=== PATIENT | female | born 1980 | race Caucasian/White ===

== ENCOUNTER 2018-07-20 09:17 | Day surgery (SDC) | payer OTHER ==
[2018-07-17 14:56] LABS: Urine Appearance CLEAR; Urine Bilirubin NEGATIVE (NEG); Urine Blood NEGATIVE (NEG); Urine Color YELLOW; Urine Glucose NEGATIVE (NEG); Urine Protein NEGATIVE (NEG); Urine Urobilinogen 0.2 mg/dL (0.2-1.0)
[2018-07-17 15:07] LABS: Absolute Monocytes 0.2 K/uL (0.1-1.3); Basophils % 0.6 % (0-1.3); Eosinophils % 1.8 % (0-4.4); Hematocrit 37.2 % (36.0-45.0); Lymphocytes % 23.4 % (15.3-44.8); MCH 27.2 pg (27.0-35.0); Monocytes % 5.7 % (3.3-12.3); RBC Red Blood Cell Count 4.37 M/uL (3.86-4.86)
[2018-07-17 15:11] LABS: Urine Microscopic Reflex NO UMIC
[~2018-07-20 09:17] MED LIST: Ringers Lactate 1,000 ML IV SCH
[2018-07-20 09:36] LABS: Specific Gravity 1.015 (1.005-1.030)
[2018-07-20] MEDS ORDERED: Ringers Lactate 1,000 ML IV ONE (09:44)
[2018-07-20] MEDS: HYDROCODONE/APAP 5/325 MG TAB ONE ×2 (10:19→17:05)
[2018-07-20] MEDS ORDERED: LIDOCAINE 1% MPF 5 ML VIAL ONE (12:46)
[2018-07-20] MEDS ORDERED: PROPOFOL 200 MG/20 ML VIAL IV ONE (12:46)
[2018-07-20] MEDS ORDERED: MIDAZOLAM HCL 2 MG/2 ML INJ ONE (12:46)
[2018-07-20] MEDS ORDERED: ROCURONIUM 50 MG/5 ML VIAL IV ONE (12:47)
[2018-07-20] MEDS ORDERED: FENTANYL CITR 100 MCG/2 ML ONE (12:47)
[2018-07-20] MEDS ORDERED: ONDANSETRON HCL 40 MG/20 ML VIAL ONE (12:47)
[2018-07-20] MEDS ORDERED: FENTANYL CITR 250 MCG/5 ML ONE (12:48)
[2018-07-20] MEDS ORDERED: NA CHLORIDE 0.9% 1,000 ML ONE (13:07)
[2018-07-20] MEDS ORDERED: METHYLENE BLUE 0.5% 10 ML AMP ONE (13:26)
[2018-07-20] MEDS ORDERED: KETOROLAC 30 MG/ML INJ ONE (15:03)
[2018-07-20] MEDS: MORPHINE 4 MG/ML SYR ONE ×2 (15:25→15:30)
[2018-07-20] MEDS ORDERED: PROMETHAZINE 25 MG/ML VIAL ONE (15:34)
[2018-07-20] MEDS: MEPERIDINE HCL 50 MG/ML AMP ONE ×4 (15:35→15:45)
[2018-07-20] MEDS ORDERED: METOCLOPRAMIDE 10 MG/2mL INJ ONE (15:38)
[2018-07-20] MEDS ORDERED: HYDROCODONE/APAP 5/325 MG TAB ONE ×2 (16:36→17:09)
[2018-07-20 16:58] VITALS: TEMP 98; O2SAT 100
[2018-07-20 17:36] VITALS: BP 110/60
--- NOTE | 2018-07-21 01:59 | OP ---
Date of Procedure: 07/20/2018 Surgeon: Fanta Christianson MD Software Test Analyst: Rosa Hernandez. Preoperative Diagnoses: Bicornuate uterus, heavy periods, pelvic pain and female infertility. Postoperative Diagnoses: Bicornuate uterus, heavy periods, pelvic pain and female infertility and en dometriosis. Procedures Performed: Hysteroscopy, dilatation and curettage with Symphion, resectoscopic endometria l sampling, laparoscopy, chromotubation, and endometriosis excision. Anesthesia: General endotracheal. Specimens: Left periureteric and posterior vaginal wall endometriosis. Complications: None. Drains: None. Condition: The patient's condition is stable. Findings: Right tube was patent with a normal easy flush of the methylene blue. The left tube had n o hydrosalpinx, however, did not flush with the methylene blue despite multiple attempts. Endometrio sis was present in the left periureteric area where the ureter had to be dissected for about 2 cm whe re the implant appeared to be adhered to the periureteric sheath. The posterior vaginal wall was sin gle isolated and possible implant that was excised. No other implants were seen. Upper abdominal ca vity with some adhesions. No endometriosis seen. Description Of Procedure: After informed consent was verified, the patient was taken back to the OR, placed in a supine fashion on operating table. After general anesthesia was given, she was placed i n a dorsal lithotomy position using Chris stirrups. Pelvic exam was performed. Uterus was found to be anteflexed and cervix anterior. No adnexal masses palpable. Abdomen, vulva, vagina, and perineum were prepped and draped in a sterile fashion. Singh was placed to drain the bladder. The cervix was exposed with a bivalve speculum. Anterior lip grasped with 2 A llis clamps. Cervix dilated to about 14-[place], then the Symphion scope was taken, the 0 degree scop e after priming the Symphion device. This was used for direct hysteroscopy through the cervical milad l into the uterine cavity. There was a bicornuate uterus where the proximal half of the cavity is bi furcated with the indentation of the uterus. However, on top of the uterus, it did not appear to hav e an indentation. The uterus appeared to be fairly smooth on the top. So I wonder if this is just a septate uterus instead of a bicornuate uterus. The top third of the cavity had a separation. There were no intracavitary lesions. The common cavity was unremarkable, sounded to 6 cm. Symphion resec toscope was introduced through the scope, and dissection was performed on both sides of the cavity an d the center of the cavity. After adequate specimen was obtained, the device was taken out. There w as excellent hemostasis. Diagnostic VCare was introduced into the uterus without any problems and fi xed in place. The Singh was connected to a drainage bag, and this area was draped. Infraumbilical incision, 1 cm, was made with a scalpel using the open laparoscopy technique. Fascia was incised. Peritoneum entered bluntly. S retractor was placed and Clementine introduced. The site of entry was checked and was unremarkable, upper abdominal surfaces with omental adhesions. Upper abdo ramón surfaces of the liver and the diaphragm unremarkable and on the pelvic cavity a 5 mm suprapubic incision was made after inspection to make sure that there was endometriosis. Then the left lower q uadrant port was placed. Both sides were placed without any problems. Endometriosis present as dict ated above. First plan was to perform endometriosis excision. Both ovaries were checked and were normal. Both t ubes were checked and were normal. There was no indentation on the top of the fundus of the uterus. Both tubes appeared to be normally inserted into the uterus. Anterior cul-de-sac had some scar tiss ue with vanessa in there, however, no other abnormalities were seen like endometriosis in the posteri or cul-de-sac. There was nothing remarkable. Posterior vaginal wall with a small and possible impla nt and left periureteric area with adhesions and possible endometriosis. So, an incision was made la teral and superior to the ureter in the lateral wall of the pelvis. Then the ureter was dissected, a nd the implants were isolated with a monopolar, to start with the incision on the peritoneum, then wi th the help of scissors sharp dissection, the periureteric sheath was dissected away from the medial leaf of the peritoneum and once the medial leaf was excised along with the implants, this was all rem kesha and handed out for permanent pathology. No evidence of any bleeding. Excellent hemostasis. No evidence of any trauma to the ureter. About 2-3 cm was dissected completely free. Then in the area between the ureter and the uterosacral ligament, there was sinus, and this had suspicious endometrio sis lesions. This was also excised. Then, the posterior vaginal wall lesion was excised with the he lp of the monopolar. There was excellent hemostasis. All implants were removed. Thorough irrigatio n and suction were performed. Then chromotubation was performed with diluted methylene blue, about 6 0 cc was injected. After 20 cc of the injection there was ready flushing of the right tube and despi te the 60 cc, the left tube did not flush with the methylene blue; however, stayed completely unaffec jimmie not dilated, so I just decided to leave the tube alone. Since there was no hydrosalpinx, I decided to leave the tube alone. Thorough irrigation and suction were performed. All the areas were hemostatic. There was good peris talsis of the ureter on the left side as well the right side. The trocars were removed under direct vision. The gas was desufflated. Clementine was removed, and the fascia was closed with the help of 0 V icryl in [id number] fashion. All skin incisions closed with the help of 4-0 Monocryl interrupte d sutures. VCare and Singh were removed. The patient was cleaned up. Instrument, needle, and spong e counts x3 were correct at the end of the case. The patient tolerated the procedure well. There wa s not any excessive fluid deficit with Symphion. The patient's map was around 80, and the pressure w as maintained to be 90-100 for a small amount of time. No cautery was used. She will follow up with me in 1 week. She will be discharged home today. SHEBA Voice ID: [id number] Report ID: [id number]
== END 2018-07-20 17:30 | disposition home or self-care (01) ==
LOC: OR 09:17
PROVIDERS: ATTEND Obstetrics & Gynecology
PROC: 0UBG4ZZ Excision of Vagina, Percutaneous Endoscopic Approach (ICD-10-PCS; 2018-07-20)
PROC: 0DBW4ZZ Excision of Peritoneum, Percutaneous Endoscopic Approach (ICD-10-PCS; 2018-07-20)
PROC: 3E0P8KZ Introduction of Other Diagnostic Substance into Female Reproductive, Via Natural or Artificial Opening Endoscopic (ICD-10-PCS; 2018-07-20)
PROC: 0UDB8ZX Extraction of Endometrium, Via Natural or Artificial Opening Endoscopic, Diagnostic (ICD-10-PCS; principal; 2018-07-20 10:30)
DX: N92.0 Excessive and frequent menstruation with regular cycle (principal); N80.4 Endometriosis of rectovaginal septum and vagina; N80.8 Other endometriosis; N94.6 Dysmenorrhea, unspecified; Q51.3 Bicornate uterus; F41.8 Other specified anxiety disorders; R12 Heartburn; E03.9 Hypothyroidism, unspecified; N94.10 Unspecified dyspareunia; N97.9 Female infertility, unspecified; R10.2 Pelvic and perineal pain; Z98.84 Bariatric surgery status; N80.3 Endometriosis of pelvic peritoneum
CPT/HCPCS: 36415; 81003; 81025; 85025; 86850; 86900; 86901; 88305; J2175; J2250; J2405; J2550; J2765; J3010; J7030

== ENCOUNTER 2021-08-21 07:03 | Day surgery (SDC) | payer OTHER ==
[2021-08-21 07:19] LABS: Specific Gravity 1.025 (1.005-1.030)
[2021-08-21] MEDS: OXYMETAZOLINE HCL 0.05% 15ML NAS ONE ×3 (07:45→07:55)
[2021-08-21] MEDS ORDERED: Ringers Lactate 1,000 ML IV ONE (07:49)
[2021-08-21] MEDS ORDERED: propofoL 200 MG/20 ML VIAL IV ONE (08:17)
[2021-08-21] MEDS ORDERED: FENTANYL CITR 100 MCG/2 ML ONE (08:18)
[2021-08-21] MEDS ORDERED: LIDOCAINE 1% MPF 5 ML VIAL ONE (08:18)
[2021-08-21] MEDS ORDERED: dexAMETHasone 10 MG/ML VIAL ONE (08:18)
[2021-08-21] MEDS ORDERED: MIDAZOLAM HCL 2 MG/2 ML INJ ONE (08:18)
[2021-08-21] MEDS ORDERED: ROCURONIUM 50 MG/5 ML VIAL IV ONE (08:21)
[2021-08-21] MEDS ORDERED: ONDANSETRON 4 MG/2 ML VIAL ONE (08:21)
[2021-08-21] MEDS ORDERED: OXYMETAZOLINE HCL 0.05% 15ML NAS ONE (08:28)
[2021-08-21] MEDS ORDERED: LIDOCAINE 1% W/EPI 1:100,000 MDV 20 ML VIAL ONE (08:28)
--- NOTE | 2021-08-21 09:27 | P.BOP ---
Preoperative diagnosis: septal deviation, nasal obstruction Postoperative diagnosis: same Primary procedure: septoplasty Polisher Eyeglass Frames: NONE,NONE Estimated blood loss: 10ml Specimen: bone of septum Findings: primarily bony deviation Anesthesia: General Complications: None Implants: none Fluids & blood products: crystalloid 700ml Transferred to: Recovery Room Condition: Good
[2021-08-21] MEDS: MORPHINE 4 MG/ML SYR ONE ×2 (09:51→09:57)
--- NOTE | 2021-08-21 10:06 | OP ---
Date of Procedure: 08/21/2021 Surgeon: Renu Hart MD Ski Patrol Director: None. Preoperative Diagnosis: Septal deviation, nasal obstruction. Postoperative Diagnosis: Septal deviation, nasal obstruction. Procedure: Septoplasty with resection of bone and cartilage. Indication For Procedure: Ms. 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 Her exam and prior MRI findings demonstrated a septum deviation toward th e right side, narrowing the right nasal cavity. The risks, benefits, and alternatives to the procedu re were discussed with the patient who agreed to proceed. Description Of Procedure: The patient was brought to the operating room, placed under general anesth esia via oral endotracheal tube. The head of bed was turned 90 degrees. The nasal hairs were trimme d and the septum was injected with 1% lidocaine with epinephrine. A total of 6 mL was used. The fac e was prepped in standard fashion for nasal surgery and the nasal cavity was examined using a headlig ht and nasal speculum confirming significant right-sided septal deviation. A right hemitransfixion i ncision was made through the mucosa and bilateral perichondrial and periosteal flaps were elevated us ing a Jj elevator. The cartilaginous portion of the septum was relatively midline and an incisio n was made approximately 5 cm caudal to the cartilaginous junction. A 5 mm piece of cartilage was re moved and the heavy angled scissors were used to cut the bony septum superiorly and inferiorly. The fragments were then removed using a Jackson rongeur. Additional small portions of the bone were remov ed superiorly in order to place the midline within the septum. The Afrin-soaked pledgets were applie d between the flaps and left to sit for several minutes in order to obtain hemostasis. An additional small piece of cartilage inferiorly which was deviating into the left nasal cavity was carefully inc ised and removed. After removal, the septum remained approximately in midline. The previously remov ed cartilage was carefully morselized in the cartilage document processing specialist and replaced between the mucosal flaps . All pledgets were removed and the count was confirmed complete and correct. The hemitransfixion i ncision was then closed in running fashion using 5-0 plain gut sutures. A 4-0 plain gut on a René n eedle was then used to place mattressing sutures to approximate the mucosal flap. The area was caref ully examined and there was no significant bleeding. There was some swelling particularly of the rig ht mucosal flap and this was observed for approximately 10 minutes. It did not appear to be worsenin g and decision was made to forego opening the incision for exploration. No Romero splints were deemed necessary and after suctioning of the nasopharynx, the patient was returned to anesthesia for awaken ing and extubation in the operating room, which proceeded without difficulty. Complications: None. Implants: None. Estimated Blood Loss: 10 mL. Iv Fluids: 700 mL of crystalloid. Disposition: The patient will be discharged home later today in the care of her family and follow up with Dr. Hart in 10 days. Due to the patient's medication interactions with tramadol, a 5-day co urse of hydrocodone with acetaminophen is prescribed. DANIELITO/WALLACE Voice ID: [id number] Report ID: [id number]
[2021-08-21] MEDS ORDERED: TRAMADOL HCL 50 MG TAB ONE (11:09)
[2021-08-21 11:47] VITALS: BP 126/83; TEMP 97.2; O2SAT 99
== END 2021-08-21 11:15 | disposition home or self-care (01) ==
LOC: OR 07:03
PROVIDERS: ATTEND Otolaryngology
PROC: 09SM0ZZ Reposition Nasal Septum, Open Approach (ICD-10-PCS; principal; 2021-08-21 08:30)
DX: J34.2 Deviated nasal septum (principal); J34.89 Other specified disorders of nose and nasal sinuses; R03.0 Elevated blood-pressure reading, without diagnosis of hypertension; Z20.822 Contact with and (suspected) exposure to COVID-19
CPT/HCPCS: 93005; 81025; 88304; 88311; 30520; U0003; J2704; J2250; J3010; J1100; J7120; J2405